=== PATIENT | male | born 1990 | race Two or more races ===

== ENCOUNTER 2020-07-01 23:46 | Emergency (ER) | payer OTHER ==
[~2020-07-01] VITALS: Ht 182.9 cm; Wt 114.3 kg
--- NOTE | 2020-07-02 | NUR ---
ED Nurse Note: Patient brought in by a friend from home to the ED with c/o head injury. Patient stated he passed out after having THC and hit the back of his head on the floor. No visible open wound/trauma on the injured area. Patient admits LOC, denies any convulsions, N&V, no CP/SOB/, denies fever/chills. PAtient is AAOX4 and ambulatory.
--- NOTE | 2020-07-02 00:20 | NUR ---
ED Nurse Note: ERMD at bedside
[2020-07-02 00:30] VITALS: BP 120/69
--- NOTE | 2020-07-02 01:45 | NUR ---
ED Nurse Note: CT scan done
--- NOTE | 2020-07-02 02:28 | Diagnostic Imaging Report ---
EXAM: CT Head Without Intravenous Contrast CLINICAL HISTORY: PAIN TECHNIQUE: Axial computed tomography images of the head/brain without intravenous contrast. CTDI is 53.40 mGy and DLP is 1259.20 mGy-cm. One or more of the following dose reduction techniques were used: automated exposure control, adjustment of the mA and/or kV according to patient size, use of iterative reconstruction technique. COMPARISON: No relevant prior studies available. FINDINGS: Brain: No hemorrhage or mass effect. Ventricles: No hydrocephalus. Bones/joints: Unremarkable. Soft tissues: Unremarkable. Sinuses: Unremarkable. Mastoid air cells: Clear. IMPRESSION: No acute hemorrhage, hydrocephalus, or mass effect.
--- NOTE | 2020-07-02 02:45 | Emergency Room Report ---
History of Present Illness General Chief Complaint: Head Injury Source: Patient Present Illness HPI 30-year-old male here after syncopal episode. Patient says that he smoked marijuana that was laced with methamphetamine, and drink alcohol earlier tonight. Patient says that he stood up suddenly and when he did he had a syncopal episode and fell back and struck his head on a hard surface ground. Patient says that he was unconscious for no more than a few seconds. He was told his information by his friends were with him. They said there was no seizure-like activity, and he awoke nearly immediately. Patient has no history of any medical problems. Is not taking medications. No headaches, focal numbness or weakness, vision changes, fevers, chills, chest pain, palpitations, shortness of breath, back pain, abdominal pain, nausea, diarrhea, dysuria, incontinence. Allergies: Coded Allergies: No Known Allergies (Unverified , 07/02/20) COVID-19 Screening Contact w/high risk pt: No Experienced COVID-19 symptoms?: No COVID-19 Testing performed RN TRAVELING: Yes - 05/15 COVID-19 Screening: Negative COVID-19 COVID-19 Testing Source: [facility] Nursing Documentation-[facility] Past Medical History: No History, Except For Review of Systems All Other Systems: negative except mentioned in HPI Physical Exam Vital Signs Date Time Temp Pulse Resp B/P (MAP) Pulse Ox O2 Delivery O2 Flow Rate FiO2 07/01/20 23:56 97.0 135 18 120/69 (86) 95 Room Air Sp02 EP Interpretation: reviewed, normal General Appearance: no apparent distress, alert, GCS 15, non-toxic Head: normocephalic, atraumatic Eyes: bilateral eye normal inspection, bilateral eye PERRL ENT: hearing grossly normal, normal pharynx, no angioedema, normal voice Neck: full range of motion, supple/symm/no masses Respiratory: chest non-tender, lungs clear, normal breath sounds, speaking full sentences Cardiovascular #1: regular rate, rhythm, no edema Cardiovascular #2: 2+ carotid (R), 2+ carotid (L), 2+ radial (R), 2+ radial (L), 2+ dorsalis pedis (R), 2+ dorsalis pedis (L) Gastrointestinal: normal bowel sounds, non tender, soft, non-distended, no guarding, no rebound Rectal: deferred Genitourinary: normal inspection, no CVA tenderness Musculoskeletal: back normal, normal range of motion, gait/station normal, non- tender Neurologic: alert, motor strength/tone normal, oriented x3, sensory intact, responsive, speech normal Psychiatric: judgement/insight normal, memory normal, mood/affect normal, no suicidal/homicidal ideation Lymphatic: no adenopathy Medical Decision Making Diagnostic Impression: Primary Impression: Acute head injury Additional Impressions: Syncope Amphetamine abuse Tetrahydrocannabinol (THC) use disorder, mild, abuse ER Course EKG: NSR, no ischemia, intervals WNL. No ectopy Rhythm strip: patient monitored for arrhythmias - no malignant dysrhythmias, runs of PVCs, nor pauses noted CT head: Normal CT head 30-year-old male here after syncopal episode. Patient admitted to smoking marijuana laced with amphetamines and drinking alcohol earlier in the night before he had a syncopal episode. He was hemodynamically stable neurovascular intact and clinically sober in the emergency department. He had no complaints here in the ER and was tolerating p.o. intake without difficulty. The patient had a normal neurologic examination and otherwise normal physical examination. CT head unremarkable and EKG was normal. The patient will follow-up with his primary care provider and was told to abstain from drugs or alcohol. He expressed understanding and was discharged. Last Vital Signs Date Time Temp Pulse Resp B/P (MAP) Pulse Ox O2 Delivery O2 Flow Rate FiO2 07/02/20 00:30 97.0 88 18 120/69 95 Room Air Disposition: HOME, SELF-CARE Referrals: [facility] Patient Instructions: Head Injury, Adult, [id number], Syncope, [id number] Joe Uriarte M.D. Jul 02, 2020 02:45
[2020-07-02 02:48] VITALS: BP 120/69
--- NOTE | 2020-07-02 02:48 | NUR ---
ER DISCHARGE NOTE: Patient is cleared to be discharged per ERMD, pt is aox4, on room air, with stable vital signs. pt was given dc and prescription instructions, pt was able to verbalize understanding, pt id band removed.pt is able to ambulate with steady gait. pt took all belongings.
--- NOTE | 2020-07-02 15:39 | Cardiology Report ---
APPROVED REPORT EKG Measurement Heart [id number] <Conclusion> Sinus tachycardia Otherwise normal ECG
== END 2020-07-02 02:49 | disposition home or self-care (01) ==
LOC: EMR 07-02 00:22
DX: S09.90XA Unspecified injury of head, initial encounter (principal); R55 Syncope and collapse; F15.10 Other stimulant abuse, uncomplicated; F12.10 Cannabis abuse, uncomplicated; W01.198A Fall on same level from slipping, tripping and stumbling with subsequent striking against other object, initial encounter; Y93.9 Activity, unspecified; Y92.9 Unspecified place or not applicable; Z72.89 Other problems related to lifestyle
CPT/HCPCS: 70450; 93005; 99284